=== PATIENT | female | born 1945 ===

== ENCOUNTER 2019-08-29 15:48 | Emergency (ER) | payer SELFPAY ==
--- NOTE | 2019-08-29 16:22 | UC ---
Skin Complaint HPI - HPI Summary HPI Summary: 74 yo female presents, accompanied by daughter, with facial abscess. Pt does not speak Kisw[place]ili, thus history is provided by the daughter with her. They tell me that for the last 10 years pt has had a cyst to her left lower jaw. Over the last 10 days has been applying a warm compress and today it burst and drained a lot of purulent yellow material. Here for eval. Currently no pain, fever. No hx of MRSA. - History of Current Complaint Time Seen by Provider: 08/29/19 16:22 Stated Complaint: FACIAL SKIN COMPLAINT Hx Obtained From: Patient Onset/Duration: Sudden Onset Current Severity: None - Allergy/Home Medications Allergies/Adverse Reactions: Allergies Allergy/AdvReac Type Severity Reaction Status Date / Time No Known Allergies Allergy Verified 08/29/19 16:26 Home Medications: Home Medications Atorvastatin* [Lipitor*] 10 mg PO 1700 08/29/19 [History Confirmed 08/29/19] Cholecalciferol CAP/TAB(NF) [Vitamin D3 CAP/TAB (NF)] 5,000 unit PO DAILY [History Confirmed 08/29/19] Diabetico Forte 08/29/19 [History] Indapamide TAB* [Lozol TAB*] 2.5 mg PO DAILY 08/29/19 [History Confirmed ] Levothyroxine TAB* [Synthroid TAB*] 25 mcg PO 0800 08/29/19 [History Confirmed 08/29/19] Metoprolol Succinate [Kapspargo Sprinkle] 25 mg PO DAILY 08/29/19 [History Confirmed 08/29/19] Sulfamethox/Trimethoprim DS* [Bactrim DS 800/160 TAB*] 1 tab PO BID #14 tab [Rx] amLODIPine TAB* [Norvasc 5 mg TAB*] 5 mg PO DAILY 08/29/19 [History Confirmed ] PMH/Surg Hx/FS Hx/Imm Hx Endocrine History: Hypothyroidism, Dyslipidemia Cardiovascular History: Hypertension - Surgical History Surgical History: Yes Surgery Procedure, Year, and Place: Thyroid removed - Family History Known Family History: Positive: Hypertension - Social History Lives: With Family Alcohol Use: None Substance Use Type: None Smoking Status (MU): Never Smoked Tobacco Review of Systems All Other Systems Reviewed And Are Negative: No Constitutional: Positive: Negative Skin: Positive: Other - Left cheek abscess Respiratory: Positive: Negative Cardiovascular: Positive: Negative Neurovascular: Positive: Negative Neurological/Mental Status: Positive: Negative Psychological: Positive: Negative Physical Exam - Summary Physical Exam Summary: GENERAL: NAD. WDWN. No pain distress. SKIN: LEFT CHEEK: Lower cheek with 1.0cm area of cavity from recently expressed abscess. NTTP. No edema or streaking. NECK: Supple. Nontender. No lymphadenopathy. CHEST: No accessory muscle use. Breathing comfortably and in no distress. CV: Pulses intact. Cap refill <2seconds NEURO: Alert. PSYCH: Age appropriate behavior. Triage Information Reviewed: Yes Vital Signs: Vital Signs: Temp Pulse Resp BP Pulse Ox 98.7 F 72 18 143/65 97 08/29/19 16:28 08/29/19 16:28 08/29/19 16:28 08/29/19 16:28 08/29/19 16:28 Vital Signs Reviewed: Yes Course/Dx - Course Course Of Treatment: Culture obtained. Wound irrigated with saline. Dressed with telfa. Rx for Bactrim. Advised daily dressing changes until well healed - Diagnoses Provider Diagnosis: Abscess of external cheek, left Discharge ED - Sign-Out/Discharge Documenting (check all that apply): Patient Departure All imaging exams completed and their final reports reviewed: No Studies - Discharge Plan Condition: Stable Disposition: HOME Prescriptions: Sulfamethox/Trimethoprim DS* [Bactrim DS 800/160 TAB*] 1 tab PO BID #14 tab Patient Education Materials: Abscess (ED) Referrals: No Primary Care Phys,NOPCP [Primary Care Provider] - Additional Instructions: If you develop a fever, shortness of breath, chest pain, new or worsening symptoms - please call your PCP or go to the ED immediately. Change the dressing daily until well healed - this may take around 2 weeks - Billing Disposition and Condition Condition: STABLE Disposition: Home
[2019-08-29 16:36] VITALS: BP 143/65
== END 2019-08-29 17:05 | disposition home or self-care (01) ==
LOC: UCEAST 15:48
DX: L02.01 Cutaneous abscess of face (principal); E03.9 Hypothyroidism, unspecified; I10 Essential (primary) hypertension; E78.5 Hyperlipidemia, unspecified; Z79.890 Hormone replacement therapy; Z79.899 Other long term (current) drug therapy
CPT/HCPCS: 87070; 87205; 87640; 87641; 99202; G0463